=== PATIENT | male | born 1960 | race Hispanic/Latino ===

== ENCOUNTER 2017-08-30 21:41 | Emergency (ER) | payer OTHER ==
[~2017-08-30] VITALS: Ht 170.2 cm; Wt 77.1 kg
== END 2017-08-30 23:05 | disposition home or self-care (01) ==
LOC: FSED 21:41
DX: R50.9 Fever, unspecified (principal); R05 Cough; M79.1 Myalgia
CPT/HCPCS: 87400; 99282

== ENCOUNTER → 2020-05-07 | Day surgery (SDC) | payer OTHER ==
[~2020-05-07] MED LIST: AVODART0.5 MG PO; FENTANYL CITRATE/PF 100MCG/2 ML INJ ONE; LIDOCAINE HCL 2% LOCAL INJ 5 ML SDV VIAL INJ ONE; MIDAZOLAM HCL 2 MG/2 ML VIAL ONE; OMEPRAZOLE40 MG PO; PROPOFOL IV EMULSION 10 MG/ML 20 ML VIAL ONE; TESTOSTERONE INJ; VYTORIN 10-201 EACH PO
[2020-05-07 13:05] VITALS: BP 106/74
== END | disposition home or self-care (01) ==
LOC: OR 10:24
PROVIDERS: ATTEND Internal Medicine
DX: Z12.11 Encounter for screening for malignant neoplasm of colon (principal); K57.30 Diverticulosis of large intestine without perforation or abscess without bleeding; R14.0 Abdominal distension (gaseous); K21.9 Gastro-esophageal reflux disease without esophagitis; N40.0 Benign prostatic hyperplasia without lower urinary tract symptoms; E66.9 Obesity, unspecified; Z01.810 Encounter for preprocedural cardiovascular examination; Z01.812 Encounter for preprocedural laboratory examination; Z11.59 Encounter for screening for other viral diseases
CPT/HCPCS: 45380; 93005; J2001; J2250; J2704; J3010; U0002; 45378